=== PATIENT | female | born 1975 | race Caucasian/White ===

== ENCOUNTER 2023-11-01 15:03 | Emergency (ER) | payer OTHER, SELFPAY ==
[2023-11-01 15:16] VITALS: BP 154/83; PULSE 92; RESP 16; TEMP 37.3; O2SAT 97
--- NOTE | 2023-11-01 15:22 | ED.EXTPRO ---
HPI - Extremity Problem General Stated complaint: Both Legs Swelling Time Seen by Provider: 11/01/23 15:20 Source: patient Mode of arrival: ambulatory Limitations: no limitations History of Present Illness HPI Narrative: Sugar is a 48-year-old female patient presenting to the clinic today with complaints bilateral leg swelling, abdominal swelling, mid abdominal pain, and shortness of breath. She reports she was recently treated in a hospital for RSV-was out of the hospital for 5 days and then went in to rehab at [facility], [place]. States she has history of narcotic abuse as well as meth abuse and is taking Suboxone Review of Systems Review of Systems: Pertinent positives per HPI. Patient denies any fever, chills, rash, headache, visual changes, dizziness, cough, runny nose, sore throat, shortness of breath, chest pain, palpitations, nausea, vomiting, diarrhea, constipation, abdominal pain, or any urinary issues. PMFSH Comments At the time of my signature, I reviewed and agree with the nursing past medical, surgical, social, and family history. There is no relevant family history pertinent to the patient complaint. Exam Narrative: General: Well-developed, obese, in no apparent distress Head: Normocephalic, atraumatic. Cardio: Regular rate and rhythm, s1 and s2 normal, no murmur appreciated. Resp: Clear to auscultation bilaterally, no rhonchi, rales, wheezing or rubs. Abdomen: Soft, bloated, distended per patient, pliable, bowel sounds present in all quadrants, non-tender to palpation, no organomegly, no CVAT tenderness. Musculoskeletal: No deformity, non-tender to palpation, grossly normal range of motion, muscle strength strong and equal, peripheral pulse strong, 2+ pitting edema with redness around lower shins to bilateral lower extremities, no cyanosis, normal gait and station Course Course Emergency Course: Portions of this record may have been created with voice recognition software. Level of Care: Express Care Visit Vital Signs Vital signs: Vital Signs Temperature 37.3 C 11/01/23 15:16 Pulse Rate 92 11/01/23 15:16 Respiratory Rate 16 11/01/23 15:16 Blood Pressure 154/83 H 11/01/23 15:16 Pulse Oximetry 97 11/01/23 15:16 Oxygen Delivery Room Air 11/01/23 15:16 Temperature 37.3 C 11/01/23 15:16 Pulse Rate 92 11/01/23 15:16 Respiratory Rate 16 11/01/23 15:16 Blood Pressure 154/83 H 11/01/23 15:16 Pulse Oximetry 97 11/01/23 15:16 Oxygen Delivery Room Air 11/01/23 15:16 Vital signs reviewed Transfer Transfered to: [facility] Transportation: Other (Private car) Transfer rationale: Bilateral lower extremity swelling, abdominal swelling, shortness of breath Accepting physician: Dr. Westbrook Transfer comments: Private car MDM - Extremity (Nontraumatic) MDM Narrative Medical decision making narrative: At the time of visit patient is resting comfortably on the exam table. Patient appears to be nontoxic. EKG: Normal sinus rhythm without ectopy. Rate is 86 beats per minute no ST elevation, depression, or T-wave inversion noted Plan: Recommend transfer to the ER for evaluation. Patient agrees for transfer. Will send patient to [facility]. Report was given to Dr. Westbrook and he accepts patient for transfer. Differential Diagnosis Differential diagnosis: Likely cellulitis, superficial thrombophlebitis, lower extremity edema, deep vein thrombosis of lower extremity and other Discharge Plan Discharge Clinical Impression: Abdominal swelling, Pain and swelling of lower extremity, Shortness of breath Patient Disposition: Acute Care Hospital Condition: Stable Follow-up/Referrals: [facility],Healthcare [Primary Care Provider] - Time of Disposition: 15:37 Quality NIHSS Nursing Documentation ED NIHSS nursing documentation: reviewed/agree
--- NOTE | 2023-11-03 08:49 | ECG_ITS ---
Measurements Intervals [place] Rate: 86 P: 67 FL: 129 QRS: 53 QRSD: 89 T: 22 QT: 344 QTc: 412 Interpretive Statements SINUS RHYTHM NO PREVIOUS ECG AVAILABLE FOR COMPARISON Electronically Signed On 11-03-2023 15:27:05 CONTROLS DESIGNER by Rodolfo Altman M.D.
== END 2023-11-01 15:30 | disposition short-term general hospital (02) ==
PROVIDERS: Emergency Provider Nurse Practitioner Family
DX: R19.00 Intra-abdominal and pelvic swelling, mass and lump, unspecified site (principal); M79.89 Other specified soft tissue disorders; R06.02 Shortness of breath
CPT/HCPCS: 93005; 99203; G0463

== ENCOUNTER 2023-11-01 16:43 | Emergency (ER) | payer OTHER, SELFPAY ==
--- NOTE | ~2023-11-01 | CT_ITS ---
EXAMINATION: CT abdomen pelvis w con DATE: 11/01/2023 19:11 INDICATION: pain, bloating TECHNIQUE: Computed tomography (CT) of the abdomen and pelvis was performed with 100 mL Omnipaque-350 intravenous contrast. Automated exposure control and iterative reconstruction technique were employe d. The dose-length product was 944.27 mGy-cm. COMPARISON: None. FINDINGS: Lower thorax: Multiple calcified granulomas. Liver: Normal. Biliary/Gallbladder: Cholelithiasis. No bile duct dilation. Pancreas: Mild atrophy. Spleen: Normal. Adrenals:No mass. Kidneys: 7 mm indeterminate density exophytic left renal pole lesion, with possible nodular enhanceme nt. Simple right midpole cyst. Additional bilateral subcentimeter hypodensities that also likely repr esent cysts. No obstructing calcification or hydronephrosis. GI tract: No small or large bowel dilation. Appendix not confidently visualized. Diverticulosis witho ut diverticulitis. Mesentery/Peritoneum: No ascites, mass, or free air. Retroperitoneum: No mass. Atherosclerotic abdominal aortic and/or arterial calcifications. Pelvis: Normal urinary bladder. Absent uterus. Normal right ovary. Left ovary not confidently visuali zed. Soft Tissues: Mild body wall edema. Bones: No acute osseous finding. IMPRESSION: No acute abdominopelvic process detected. 7 mm indeterminate left midpole lesion. Recommend nonemergent MRI or CT without and with contrast for further evaluation. Reviewed, dictated and finalized at location K. EEPER FARMER
--- NOTE | ~2023-11-01 | US_ITS ---
EXAMINATION: US venous doppler [facility] DATE: 11/01/2023 18:54 INDICATION: pain, swelling, redness . TECHNIQUE: Grayscale images without and with compression and Doppler images of the bilateral lower ex tremity veins were obtained. COMPARISON: None FINDINGS: The right common femoral vein, profunda (deep) femoral vein, femoral vein, popliteal vein, peroneal v ein, posterior tibial veins, gastrocnemius vein, and greater saphenous vein are patent. The left common femoral vein, profunda (deep) femoral vein, femoral vein, popliteal vein, peroneal v ein, posterior tibial veins, gastrocnemius vein, and greater saphenous vein are patent. IMPRESSION: Patent bilateral lower extremity veins. No evidence of deep venous thrombosis. Reviewed, dictated and finalized at location K. INE CLOTH MEASURER
--- NOTE | ~2023-11-01 | XR_ITS ---
EXAMINATION: XR chest 2V Exam Date/Time: 11/01/2023 18:32 SENIOR PROCESS ANALYST HISTORY: SOB, bilat leg swelling Comparison: None. RESULT: Lines, tubes, and devices: None. Lungs and pleura: Clear. Cardiomediastinal silhouette: Normal. Other: No acute osseous or upper abdominal finding. IMPRESSION: No acute cardiopulmonary process. Reviewed, dictated and finalized at location K. OR PROCESS ANALYST
[2023-11-01 16:57] VITALS: BP 148/82; PULSE 98; RESP 18; TEMP 36.6; O2SAT 100
--- NOTE | 2023-11-01 18:13 | ECG_ITS ---
Measurements Intervals [place] Rate: 81 P: 52 NM: 123 QRS: 46 QRSD: 89 T: 21 QT: 359 QTc: 417 Interpretive Statements SINUS RHYTHM NO PREVIOUS ECG AVAILABLE FOR COMPARISON Electronically Signed On 11-02-2023 16:23:03 CAMPGROUND CARETAKER by Rodolfo Altman M.D.
[2023-11-01 18:14] VITALS: BP 157/88; PULSE 83; RESP 17; TEMP 36.6; O2SAT 99
[2023-11-01 18:26] LABS: Basophils Percent Auto 0.6 % (0.2-1.2); Eosinophils Absolute Auto 0.2 K/mm3 (0-0.3); Eosinophils Percent Auto 3.1 % (0-4.4); Hematocrit 34.5 % (37.0-47.0); Immature Granulocyte Absolute 0.03 K/mm3 (0.00-0.031); Immature Granulocyte Percent A 0.5 % (0-0.5); Lymphocytes Absolute Auto 1.59 K/mm3 (0.9-3.2); Lymphocytes Percent Auto 24.3 % (18.3-44.2); Mean Corpuscular HGB Conc 31.9 g/dl (32-36); Mean Platelet Volume 11.7 fl (7.4-10.4); Monocytes Absolute Auto 0.7 K/mm3 (0.1-0.6); Monocytes Percent Auto 10.9 % (2.6-8.5); Neutrophils Percent Auto 60.6 % (45.5-73.1); Platelet Count Result 276 k/mm3 (150-375); Red Blood Count 3.67 M/mm3 (4.2-5.4); Red Cell Distribution Width 14.6 % (11.5-14.5); White Blood Count 6.5 K/mm3 (4.5-10.0)
--- NOTE | 2023-11-01 18:29 | ED.EXTPRO ---
HPI - Extremity Problem General Chief complaint: Extremity Problem,Nontraumatic <GAVI Segundo Last Filed: 11/01/23 18:33> Stated complaint: swelling and SOB, redness on legs <GAVI Segundo Last Filed: 11/01/23 18:33> Time Seen by Provider: 11/01/23 18:15 <GAVI Segundo Last Filed: 11/01/23 18:33> Focused HPI: Patient is a 48 y/o female who presents to the ED with multiple complaints. Patient reports having BLE swelling for the past 5 days. She c/o pain to her BLE. States they also became red over the last 2 days. Denies any previous hx of DVT. She also reports having increased SOB with exertion over the last couple of days. Notes she recently had RSV. Denies CP, fevers, cough. She also c/o abdominal pain and bloating for the last 4 days with decreased appetite, early satiety. Patient is currently in Rehab for methamphetamine abuse. Last used 15 days ago. GENERAL: Appears older than stated age, obese with BMI of 38.0, and in no acute distress. HEAD: Normocephalic, atraumatic. CHEST: Clear to auscultation. ?No respiratory distress. HEART: Regular rate and rhythm.? ABD: Abdomen appears slightly distended, diffusely tender throughout upper abdomen MSK: Trace pitting edema bilateral lower extremities, appears symmetric bilaterally. Erythema noted to bilateral anterior lower legs. No significant wounds. NEURO: ?Alert and oriented x3. Patient screened in triage and initial orders placed.? ?Additional care and disposition to be based upon?diagnostic testing and treatment. <GAVI Segundo Last Filed: 11/01/23 18:33> Source: patient <GAVI Segundo Last Filed: 11/01/23 18:33> Mode of arrival: ambulatory <GAVI Segundo Last Filed: 11/01/23 18:33> Limitations: no limitations <GAVI Segundo Last Filed: 11/01/23 18:33> History of Present Illness HPI Narrative: Patient is a 40-year-old female who presents emergency department with chief complaint of lower extremity edema and redness. The patient reports that she is currently in rehab after methamphetamine abuse the patient states that she last used about 15 days ago the patient denies chest pain reports that she has history of chronic COPD and does have some mild shortness of breath normally. The patient denies fever and reports that she has noticed there has been some slight swelling in her legs and reported that there has been some redness of the skin. <Compa España MD - Last Filed: 11/01/23 20:10> Related Data Allergies/Adverse reactions: Allergies Allergy/AdvReac Type Severity Reaction Status Date / Time aspirin Allergy Unknown Verified 11/01/23 20:05 ketorolac Allergy Unknown Verified 11/01/23 20:06 tramadol Allergy Unknown Verified 11/01/23 20:06 <Sayra Vicente PA-C - Last Filed: 11/01/23 18:33> Review of Systems Review of Systems: A 10 system review of systems was completed on the patient and is negative except for what is stated in the HPI. Nursing and ancillary documentation was reviewed. <Compa España MD - Last Filed: 11/01/23 20:10> Exam Narrative: GENERAL: Well-appearing, well-nourished, and in no acute distress. HEAD: Normocephalic, atraumatic. EYES: PERRLA and EOMI. ENT: Nares clear, no rhinorrhea or epistaxis. Mucous membranes moist. NECK: Supple. CHEST: Clear to auscultation. No respiratory distress. HEART: Regular rate and rhythm. No murmur heard. Normal peripheral pulses. ABDOMEN: Soft, nontender, nondistended, normal active bowel sounds. EXTREMITIES: Normal range of motion. Trace edema. no splinter hemorrhages no Osler's nodes or Janeway lesions. SKIN: Warm, dry, no rash. Erythema noted to bilateral anterior lower legs. No significant wounds NEURO: No focal deficits. Alert and oriented x3. PSYCH: Normal mood and affect. <Compa España MD - Last Filed:
[2023-11-01 18:33] LABS: Alanine Aminotransferase 22 U/L (6-35); Albumin Level 3.9 g/dL (3.5-5.1); Alkaline Phosphatase 73 U/L (38-126); Anion Gap 1 mmol/L (8-16); Aspartate Amino Transferase 38 U/L (14-36); Bilirubin,Total 0.5 mg/dL (0.2-1.3); Blood Urea Nitrogen 14 mg/dL (7-17); Carbon Dioxide 31 mmol/L (22-30); Chloride 105 mmol/L (98-107); Estimated CRCL calculation 74 ml/min; Estimated Glomerular Filt Rate > 60; Glucose 94 mg/dL (65-110); Potassium 4.4 mmol/L (3.4-5.0); Sodium 137 mmol/L (137-145)
[2023-11-01 18:45] LABS: NT Pro B Type Natriuretic Pept 426 pg/mL (19.9-100); Troponin I < 0.012 ng/mL (0.000-0.034)
[2023-11-01 18:55] LABS: INR 1.1; Prothrombin Time 14.2 Seconds (11.1-14.7)
[2023-11-01 18:56] LABS: Partial Thromboplastin Time 34.9 SECONDS (22.3-36.8)
[2023-11-01 19:09] LABS: Lipase 28 U/L (23-300)
--- NOTE | 2023-11-01 19:17 | PC.NURSE ---
Assumed care of pt from DASHA Corona at this time.
[2023-11-01] MEDS: CLINDAMYCIN HCL 150 MG CAP 300 MG PO (20:16)
[2023-11-01 20:33] VITALS: BP 167/92; PULSE 96; RESP 20; O2SAT 98
== END 2023-11-01 20:33 | disposition home or self-care (01) ==
LOC: ANHED 20:22
PROVIDERS: Physician Assistant; Emergency Provider Emergency Medicine
DX: L03.116 Cellulitis of left lower limb (principal); L03.115 Cellulitis of right lower limb; F15.10 Other stimulant abuse, uncomplicated; N28.9 Disorder of kidney and ureter, unspecified
CPT/HCPCS: 36415; 71046; 74177; 80053; 83690; 83880; 84484; 85025; 85610; 85730; 93005; 93970; 99284; A9270; Q9967